=== PATIENT | male | born 1990 | race Caucasian/White ===

== ENCOUNTER 2016-11-16 19:42 | Emergency (ER) | payer SELFPAY ==
[2016-11-16 20:04] VITALS: BP 143/94
--- NOTE | 2016-11-16 20:46 | UC ---
Knee Pain HPI - HPI Summary HPI Summary: Pt presents with c/o right knee that began 4 years ago after injury playing baseball and sliding into a base. 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 - History of Current Complaint Chief Complaint: UCLowerExtremity Stated Complaint: RIGHT KNEE INJURY Time Seen by Provider: 11/16/16 20:27 Hx Obtained From: Patient Onset/Duration: Gradual Onset, Lasting Weeks Severity Initially: Mild Severity Currently: Moderate Character: Dull, Aching Aggravating Factor(s): Prolonged Standing, Stairs Alleviating Factor(s): Rest Associated Signs And Symptoms: Positive: Swelling Able to Bear Weight: Yes - Allergies/Home Medications Allergies/Adverse Reactions: Allergies Allergy/AdvReac Type Severity Reaction Status Date / Time No Known Allergies Allergy Verified 11/16/16 19:59 Home Medications: Home Medications Naproxen TAB* [Naprosyn 250 mg TAB*] 250 mg PO ONCE PRN 11/16/16 [History Confirmed 11/16/16] PMH/Surg Hx/FS Hx/Imm Hx Previously Healthy: Yes - Surgical History Surgical History: None - Family History Known Family History: Positive: Cardiac Disease - Social History Lives: With Family Alcohol Use: None Substance Use Type: None Smoking Status (MU): Heavy Every Day Tobacco Smoker Type: Cigarettes, Smokeless Tobacco Amount Used/How Often: 10-15 cigarettes daily, 1 can a day Length of Time of Smoking/Using Tobacco: 8 years Review of Systems Constitutional: Negative Skin: Negative Eyes: Negative ENT: Negative Respiratory: Negative Cardiovascular: Negative Gastrointestinal: Negative Genitourinary: Negative Motor: Negative Neurovascular: Negative Musculoskeletal: Arthralgia, Edema - right knee,, Myalgia Neurological: Negative Psychological: Negative All Other Systems Reviewed And Are Negative: Yes Physical Exam Triage Information Reviewed: Yes Appearance: Well-Appearing Vital Signs: Initial Vital Signs Temp 100.4 F 11/16/16 19:59 Pulse 93 11/16/16 19:59 Resp 16 11/16/16 19:59 BP 143/94 11/16/16 19:59 Pulse Ox 100 11/16/16 19:59 Eye Exam: Normal Neck exam: Normal Respiratory Exam: Normal Musculoskeletal Exam: Other Musculoskeletal: Positive: Edema @ - right lateral knee, tenderness at right knee joint space Neurological Exam: Normal Psychological Exam: Normal Skin Exam: Normal Knee Pain Course/Dx - Differential Dx/Diagnosis Differential Diagnosis/HQI/PQRI: Internal Derangement Of Knee, Sprain, Strain Provider Diagnoses: right knee, possible meniscus tear Discharge - Discharge Plan Condition: Stable Disposition: HOME Patient Education Materials: Knee Pain (ED) Referrals: Sameer Tobar MD [Medical Doctor] - Non Staff,Doctor [Primary Care Provider] - If Needed Additional Instructions: Please follow up with your PCP as needed. I have referred you to an orthopedic provider. Please follow up as needed.
== END 2016-11-16 20:58 | disposition home or self-care (01) ==
LOC: UCCORT 19:42
DX: M25.561 Pain in right knee (principal); M25.461 Effusion, right knee; F17.210 Nicotine dependence, cigarettes, uncomplicated; F17.220 Nicotine dependence, chewing tobacco, uncomplicated
CPT/HCPCS: 99201; G0463

== ENCOUNTER 2019-01-28 09:56 | Emergency (ER) | payer SELFPAY ==
[2019-01-28] MEDS ORDERED: cefTRIAXone VIAL(*) 1,000 MG in NS 0.9% 50 ML* 50 ML IVPB ONE (10:33)
[2019-01-28] MEDS ORDERED: Dexamethasone IV* 4 MG/ML 1 ML (4 MG) IV SLOW PU ONE (10:33)
[2019-01-28] MEDS ORDERED: NS 0.9% 1000 ML** 1,000 ML BOLUS ONE (10:33)
[2019-01-28] MEDS ORDERED: Ketorolac INJ* 30 MG/ML 1 ML VIAL IV ONE (10:34)
[2019-01-28] MEDS ORDERED: cefTRIAXone VIAL(*) 1,000 MG VIAL ONE (10:43)
[2019-01-28 12:22] VITALS: BP 147/82
--- NOTE | 2019-01-28 12:30 | UC ---
Throat Pain/Nasal [place] HPI - HPI Summary HPI Summary: 28 yo male with a 4 day hx of sore throat worsened yesterday feverish headache and mylagias able to drink no trouble handling his secretions no n/v/d - History of Current Complaint Chief Complaint: UCRespiratory Stated Complaint: SORE THROAT Time Seen by Provider: 01/28/19 10:11 Hx Obtained From: Patient Onset/Duration: Gradual Onset, Lasting Days Severity: Moderate Pain Intensity: 7 Pain Scale Used: 0-10 Numeric Cough: None Associated Signs & Symptoms: Positive: Fever - Epiglottits Risk Factors Epiglottis Risk Factors: Negative - Allergies/Home Medications Allergies/Adverse Reactions: Allergies Allergy/AdvReac Type Severity Reaction Status Date / Time No Known Allergies Allergy Verified 01/28/19 10:15 Home Medications: Home Medications Acetaminophen TAB* [Tylenol TAB*] 650 mg PO Q4H PRN 01/28/19 [History Confirmed 01/28/19] Natural Herbs PRN 01/28/19 [History] PMH/Surg Hx/FS Hx/Imm Hx Previously Healthy: Yes - Surgical History Surgical History: None - Family History Known Family History: Positive: Cardiac Disease - Social History Alcohol Use: None Substance Use Type: None Smoking Status (MU): Heavy Every Day Tobacco Smoker Type: Cigarettes, Smokeless Tobacco Amount Used/How Often: 10-15 cigarettes daily, 1 can a day Length of Time of Smoking/Using Tobacco: 8 years Review of Systems All Other Systems Reviewed And Are Negative: Yes Constitutional: Positive: Fever, Chills Skin: Positive: Negative Eyes: Positive: Negative ENT: Positive: Sore Throat Respiratory: Positive: Negative Cardiovascular: Positive: Negative Gastrointestinal: Positive: Negative Genitourinary: Positive: Negative Motor: Positive: Negative Neurovascular: Positive: Negative Musculoskeletal: Positive: Myalgia Neurological: Positive: Headache Psychological: Positive: Negative Physical Exam Triage Information Reviewed: Yes Appearance: Well-Appearing - NON TOXIC, Well-Nourished Vital Signs: Initial Vital Signs Temp 100 F 01/28/19 10:17 Pulse 111 01/28/19 10:17 Resp 24 01/28/19 10:17 BP 143/74 01/28/19 10:17 Pulse Ox 100 01/28/19 10:17 Vital Signs Reviewed: Yes Eyes: Positive: Conjunctiva Clear ENT: Positive: Hearing grossly normal, Pharyngeal erythema, TMs normal, Tonsillar swelling - L>>R, Tonsillar exudate - bilat. Negative: Nasal congestion, Nasal drainage, Trismus, Muffled voice, Hoarse voice, Uvula midline - uvula minimally displaced to right with hint of fullness soft palate. no peritosillar cellulitis note, no distinct abscess noted, no muffled voice Dental Exam: Normal Neck: Positive: Supple, Tenderness @ - tender and enlarged left cervical adenopathy Respiratory: Positive: Lungs clear, Normal breath sounds, No respiratory distress, No accessory muscle use Cardiovascular: Positive: RRR, No Murmur Abdomen Description: Positive: Nontender, No Organomegaly Musculoskeletal: Positive: ROM Intact, No Edema Neurological: Positive: Alert Psychological Exam: Normal Skin Exam: Normal Diagnostics - Laboratory Lab Results: strep (-) Re-Evaluation - Re-Evaluation First Eval Re-Evaluation Time: 12:20 Change: Improved - decreased throat pain, still with HARRIS and myalgias, overall feels improved Throat Pain/Nasal Course/Dx - Course Course Of Treatment: I relayed my concerns to pt that he has an early peritonsillar abscess aware of need to go to ER for worsening symptoms - Differential Dx/Diagnosis Provider Diagnosis: Tonsillitis Discharge - Sign-Out/Discharge Documenting (check all that apply): Patient Departure All imaging exams completed and their final reports reviewed: No Studies - Discharge Plan Condition: Stable Disposition: HOME Prescriptions: Amoxicillin/Clavulanate TAB* [Augmentin TAB 875*] 875 mg PO BID #28 tab Patient Education Materials: Peritonsillar Abscess (ED) Additional Instructions: you have an appointment tomorrow in the building next door to [facility] Dr. Capellan ( a throat specialist) can see you at 9AM I am concerned that you have an abscess forming near the left tonsil Here you received 1000mg mg of rocephin (antibiotic) 12 mg of decadron (steroid) 15 mg toradol ( pain med) YOU NEED TO GO TO THE ER IF YOU SYMPTOMS WORSEN IF YOU NEED TO CHANGE YOUR APPT OR CANCEL THEY CAN BE REACHED AT [phone] - Billing Disposition and Condition Condition: STABLE Disposition: Home
== END 2019-01-28 12:34 | disposition home or self-care (01) ==
LOC: UCCORT 09:56
DX: J03.90 Acute tonsillitis, unspecified (principal); F17.210 Nicotine dependence, cigarettes, uncomplicated; F17.290 Nicotine dependence, other tobacco product, uncomplicated
CPT/HCPCS: 87651; 96361; 96365; 96375; 96376; 99212; G0463; J0696; J1100; J1885